=== PATIENT | female | born 1995 | race Caucasian/White ===

== ENCOUNTER 2018-11-23 18:00 | Inpatient (IN) | payer OTHER ==
[~2018-11-23] VITALS: Ht 165.1 cm; Wt 81.1 kg
[2018-11-29] MEDS ORDERED: LACTATED RINGER'S 1,000 ML IV PRN (09:59)
[2018-11-29] MEDS ORDERED: OXYTOCIN 30 UNITS/LR 500 ML IV SCH ×3 (10:00)
[2018-11-29] MEDS ORDERED: OXYTOCIN 30 UNITS/LR 500 ML IV PRN ×2 (10:00→21:00)
[2018-11-29] MEDS ORDERED: BUTORPHANOL 2 MG INJ IV PRN (10:00)
[2018-11-29] MEDS ORDERED: METHYLERGONOVINE 0.2 MG INJ IM PRN (10:00)
[2018-11-29] MEDS ORDERED: IBUPROFEN 600 MG TAB PO PRN (10:00)
[2018-11-29] MEDS ORDERED: MISOPROSTOL 200 MCG TAB PR PRN ×2 (10:00→21:00)
[2018-11-29] MEDS ORDERED: BUTORPHANOL 1 MG INJ IV PRN (10:00)
[2018-11-29] MEDS ORDERED: CARBOPROST 250 MCG INJ IM PRN ×2 (10:00→21:00)
[2018-11-29] MEDS ORDERED: MISOPROSTOL 50 MCG CAPSULE VAG ONE (10:00)
[2018-11-29] MEDS ORDERED: LIDOCAINE 1% (MPF) 30 ML INJ INJ PRN (10:00)
[2018-11-29 10:51] VITALS: BP 111/72; PULSE 104; RESP 18; Ht 165.1 cm; Wt 81.1 kg
[2018-11-29] MEDS: LACTATED RINGER'S 1,000 ML IV SCH ×2 (12:28→13:15)
--- NOTE | 2018-11-29 12:39 | PREAC ---
Date/Time of Note Date/Time of Note DATE: 11/29/18 TIME: 12:38 Anesthesia Eval and Record Evaluation Time Pre-Procedure Interview DATE: 11/29/18 TIME: 12:38 Age 23 Sex female NPO: 8 hrs Preoperative diagnosis labor pain Planned procedure epidural Past Medical History Past Medical History: None Surgery & Anesthesia Issues No known issue Meds Anticoagulation: No Beta Carolyn within 24 hr: No Reason Beta Carolyn not given: Pt. not on B-Carolyn Current Medications Lactated Ringer's 1,000 ml @ 125 mls/hr Q8H IV Last administered on 11/29/18at 12:28; Admin Dose 125 MLS/HR; Start 11/29/18 at 09:59 Butorphanol Tartrate (Stadol) 1 mg Q2H PRN IV PAIN; Start 11/29/18 at 10:00 Butorphanol Tartrate (Stadol) 2 mg Q2H PRN IV PAIN; Start 11/29/18 at 10:00 Lidocaine (Xylocaine 1% (Mpf)) 30 ml ONCE PRN INJ EPISIOTOMY; Start 11/29/18 at 10:00 Oxytocin/Lactated Ringer's 500 ml @ 500 mls/hr ONCE POST IV ; Start 11/29/18 at 10:00 Oxytocin/Lactated Ringer's 500 ml @ 125 mls/hr POST IV ; Start 11/29/18 at 10:00 Ibuprofen (Motrin) 600 mg ONCE PRN PO PAIN LEVEL 1-5; Start 11/29/18 at 10:00 Lactated Ringer's 1,000 ml @ 2,000 mls/hr Q30M PRN IV ANESTHESIA; Start 11/29/18 at 09:59 Oxytocin/Lactated Ringer's 500 ml @ 0 mls/hr ONCE PRN IV VAGINAL BLEEDING; Start 11/29/18 at 10:00 Methylergonovine Maleate (Methergine) 0.2 mg ONCE PRN IM VAGINAL BLEEDING; Start 11/29/18 at 10:00 Carboprost Tromethamine (Hemabate) 250 mcg ONCE PRN IM VAGINAL BLEEDING; Start 11/29/18 at 10:00 Misoprostol (Cytotec) 1,000 mcg ONCE PRN [place] VAGINAL BLEEDING; Start 11/29/18 at 10:00 Oxytocin/Lactated Ringer's 500 ml @ 0 mls/hr FOR INDUCTION IV ; Start 11/29/18 at 10:00 Meds reviewed: Yes Allergies Coded Allergies: No Known Allergy (Unverified , 11/29/18) Allergies Reviewed: Yes Labs/Studies Labs Reviewed: Reviewed by anesthesiologist Result Diagram: 11/29/18 1102 Laboratory Tests 11/29/18 11:02 Blood Bank Test 11/29/18 11:02 Antibody Screen NEGATIVE Blood Type A POSITIVE Rh Immune Globulin Candidate NO test: N/A Pre-procedure Exam Last vitals Vital Signs Date Temp Pulse Resp B/P (MAP) Pulse Ox O2 O2 Flow FiO2 Time Delivery Rate 11/29/18 98.2 104 18 111/72 Room Air 10:51 (85) Airway: Adequate mouth opening, Adequate thyromental dist Mallampati: Mallampati II Teeth: Normal Lung: Normal Heart: Normal ASA Physical Status ASA physical status: 2 Emergency: None Pre-operative Attestations Prior to commencing anesthesia and surgery, the patient was re-evaluated, there was verification of: *The patient's identity *The results of appropriate recent lab work and preoperative vital signs *The above evaluation not changing prior to induction *Anesthetic plan, risk benefits, alternative and complications discussed with patient/family; questions answered; patient/family understands, accepts and w ishes to proceed. NGUYEN RASMUSSEN DO Nov 29, 2018 12:39
[2018-11-29] MEDS ORDERED: FENTAnyl 2MCG/ML-ROPIV 0.2% 100 ML ONE (12:49)
[2018-11-29] MEDS ORDERED: MINERAL OIL LIGHT 10 ML VIAL TOP ONE (14:30)
--- NOTE | 2018-11-29 15:12 | PAC ---
Date/Time of Note Date/Time of Note DATE: 11/29/18 TIME: 15:11 Post-Anesthesia Notes Post-Anesthesia Note Last documented vital signs Vital Signs Date Temp Pulse Resp B/P (MAP) Pulse Ox O2 O2 Flow FiO2 Time Delivery Rate 11/29/18 98 75 18 112/65 Room Air 1300 Activity: WNL Respiratory function: WNL Cardiovascular function: WNL Mental status: Baseline Pain reasonably controlled: Yes Hydration appropriate: Yes Nausea/Vomiting absent: Yes NGUYEN RASMUSSEN DO Nov 29, 2018 15:12
[2018-11-29] MEDS ORDERED: NALOXONE (0.4 MG/ML) INJ IV PRN (18:30)
[2018-11-29] MEDS ORDERED: FENTAnyl 2MCG/ML-ROPIV 0.2% 100 ML BAG EPI SCH (18:30)
--- NOTE | 2018-11-29 20:04 | HP ---
Date/Time of Note Date/Time of Note DATE: 11/29/18 TIME: 20:02 OB - History Hx of Present Free Text/Dictation 23 YO with IUP at 41.6 weeks, admitted for IOL. on Pitocin, has epidural. NST reassuring AROM: clear she is 100% 9 cm -2 Care: Good Care Ultrasounds: Normal mid trimester US Obstetrical Complications: None Medical Complications: None Past Family/Social History * Past Medical, Surgical, Family and Obstetric Histories reviewed from chart. OB Admission Exam Vital Signs Vital Signs Vital Signs Date Temp Pulse Resp B/P (MAP) Pulse Ox O2 O2 Flow FiO2 Time Delivery Rate 11/29/18 98.2 104 18 111/72 Room Air 10:51 (85) Physical Exam HEENT: WNL Heart: Rhythm Normal Lungs: Clear, Equal Abdomen: WNL Extremities: Normal Reflexes: Normal Last 72 hours Lab Results CBC & BMP 11/29/18 11:02 OB Assessment/Plan Other Assessment: here for IOL currently in active labor Induction Method: per Pitocin Protocol RYAN PRATER MD Nov 29, 2018 20:04
--- NOTE | 2018-11-29 20:47 | LDN ---
Date/Time of Note Date/Time of Note DATE: 11/29/18 TIME: 20:45 Delivery Summary 23 YO with IUP at 41.6 weeks s/p of viable female APGARS 8/9. EBL 300 ml. no laceration. placenta delivered intact and spontaneously. one loose nuchal cord. one loose true knot. Placenta Delivered: Spontaneously Meconium: none Episiotomy: No Perineal laceration: 0 Anesthesia type: Epidural Estimated blood loss: 300 Sponge & Needle done & correct: Yes All needle counts correct: Yes Any foreign bodies felt in the: No Infant Delivery Information Sex Infant Sex: female Apgars 1 Minute: 8 5 Minute: 9 Suctioning Nose & mouth suctioned at judson: No Delee suction performed: No Umbilical Cord Umbilical cord with: 3 Vessels Cord presentations: true knot Nuchal cord present X: 1 Cord Blood was obtained: Yes Mother & Baby Disposition Disposition Mom & Baby to Maternity; Good: Yes RYAN PRATER MD Nov 29, 2018 20:47
[2018-11-29] MEDS ORDERED: DIBUCAINE 1% 30 GM OINT TOP PRN (21:00)
[2018-11-29] MEDS: SENNA/DOCUSATE NA (8.6MG/50MG) TAB PO SCH (21:00)
[2018-11-29] MEDS ORDERED: SENNA/DOCUSATE NA (8.6MG/50MG) TAB PO PRN (21:00)
[2018-11-29] MEDS ORDERED: BENZOCAINE 20% 56 ML SPRAY TOP PRN (21:00)
[2018-11-29] MEDS ORDERED: DIPHENHYDRAMINE 50 MG INJ IV PRN (21:00)
[2018-11-29] MEDS ORDERED: DIPHENHYDRAMINE 25 MG CAP PO PRN (21:00)
[2018-11-29] MEDS ORDERED: NA PHOSPHATE/BIPHOS 133 ML ENEMA PR PRN (21:00)
[2018-11-29] MEDS ORDERED: ONDANSETRON 4 MG INJ IV PRN (21:00)
[2018-11-29] MEDS ORDERED: ONDANSETRON 4 MG TAB PO PRN (21:00)
[2018-11-29] MEDS ORDERED: WITCH HAZEL/GLYCERIN PAD PR PRN (21:00)
[2018-11-29] MEDS ORDERED: MAGNESIUM HYDROXIDE 30ML CUP PO PRN (21:00)
[2018-11-29] MEDS ORDERED: LANOLIN HPA 1 PKT TOP PRN (21:00)
[2018-11-29] MEDS ORDERED: HYDROCODONE/APAP (5/325) TAB PO PRN ×2 (21:00)
[2018-11-29] MEDS: LACTATED RINGER'S 1,000 ML IV* SCH (22:17)
[2018-11-29 22:40] VITALS: BP 110/59; PULSE 77; RESP 18
[2018-11-29 23:15] VITALS: BP 116/56; PULSE 75; RESP 18
[2018-11-30] MEDS: IBUPROFEN 600 MG TAB PO SCH ×5 (00:27→18:30)
[2018-11-30 04:05] VITALS: BP 113/60; PULSE 76; RESP 18
[2018-11-30] MEDS: LACTATED RINGER'S 1,000 ML IV* SCH ×2 (04:43→12:43)
[2018-11-30 07:55] VITALS: BP 106/56; PULSE 81; RESP 18
[2018-11-30] MEDS: SENNA/DOCUSATE NA (8.6MG/50MG) TAB PO SCH ×2 (09:00→21:00)
--- NOTE | 2018-11-30 13:23 | DS ---
Date/Time of Note Date/Time of Note DATE: 11/30/18 TIME: 13:22 Obstetrical Discharge Record Final Diagnosis Final Diagnosis: Term delivered Vaginal Delivery Obstetrical Delivery: Spontaneous Complications Augmentation: Yes Induction: Yes Condition on Discharge Physical Assessment Voiding: Yes Bowel Movement: Yes Breast: Soft, non-tender, Filling Fundus: Firm Abdomen and Incision: soft, not tender Episiotomy: NA Calf Tenderness: No Patient Condition: Good RYAN PRATER MD Nov 30, 2018 13:23
[2018-11-30 16:40] VITALS: BP 100/56; PULSE 76; RESP 18
[2018-11-30 20:00] VITALS: BP 112/57; PULSE 86; RESP 18
[2018-12-01] MEDS: IBUPROFEN 600 MG TAB PO SCH ×3 (00:44→12:00)
[2018-12-01 04:00] VITALS: BP 98/56; PULSE 66; RESP 16
[2018-12-01 08:50] VITALS: BP 95/53; PULSE 75; RESP 16
[2018-12-01] MEDS ORDERED: MEASLES,MUMPS,RUBELLA VACCINE INJ SC* ONE (09:00)
[2018-12-01] MEDS ORDERED: VARICELLA VACCINE LIVE/PF 1,350 UNIT/0.5 ML ML SC* ONE (09:00)
[2018-12-01] MEDS: SENNA/DOCUSATE NA (8.6MG/50MG) TAB PO SCH (09:00)
[2018-12-01] MEDS ORDERED: DIPHTH/TET/ACEL PERTUSS (ADULT) 0.5 ML VIAL IM* ONE (09:00)
== END 2018-12-01 14:48 | disposition home or self-care (01) | DRG 807 ==
LOC: L-D 11-29 09:40 → PP1 11-29 22:39
PROVIDERS: ADMIT Specialist; ATTEND Specialist
PROC: 3E033VJ Introduction of Other Hormone into Peripheral Vein, Percutaneous Approach (ICD-10-PCS; 2018-11-29)
PROC: 10E0XZZ Delivery of Products of Conception, External Approach (ICD-10-PCS; principal; 2018-11-29 08:30)
DX: O48.0 Post-term pregnancy (principal); Z37.0 Single live birth; Z3A.41 41 weeks gestation of pregnancy; O69.2XX0 Labor and delivery complicated by other cord entanglement, with compression, not applicable or unspecified
CPT/HCPCS: 62319; 76816; 85025; 85610; 85730; 86592; 86850; 86900; 86901; 87340; 90716; J2210; J2590; J3010; J7120